=== PATIENT | female | born 1985 | race African-American/Black ===

== ENCOUNTER 2018-01-15 18:29 | Emergency (ER) | payer SELFPAY ==
[2018-01-15] MEDS ORDERED: Acetaminophen 325 MG TAB ONE (19:55)
[2018-01-15] MEDS ORDERED: Ibuprofen 200 MG TAB ONE (19:55)
== END 2018-01-15 20:01 | disposition home or self-care (01) ==
LOC: ERS 18:29
DX: M54.9 Dorsalgia, unspecified (principal); W20.8XXA Other cause of strike by thrown, projected or falling object, initial encounter
CPT/HCPCS: 99283

== ENCOUNTER 2018-11-19 07:47 | Emergency (ER) | payer MEDICAID, SELFPAY ==
[2018-11-19] MEDS ORDERED: Ketorolac Tromethamine 30 MG/ML VIAL ONE (09:58)
[2018-11-19] MEDS ORDERED: Ondansetron PF 4 MG/2 ML Vial ONE (09:58)
[2018-11-19] MEDS ORDERED: Acetaminophen 500 MG TAB ONE (09:58)
[2018-11-19] MEDS ORDERED: Metoclopramide HCl 10 MG/2 ML VIAL ONE (09:58)
--- NOTE | 2018-11-19 10:09 | CT ---
CT BRAIN NONCONTRAST: Date: 11/19/18 HISTORY: 32-year-old female with headache. FINDINGS: The ventricles are normal in size and configuration. There is no midline shift or any other mass eff ect. There is no evidence of acute intracranial hemorrhage, large cortical infarct, or extraaxial fl uid collection. The reynolds matter /white matter differentiation is maintained. The calvarium is intac t. The tympanomastoid cavities, and the upper portions of the paranasal sinuses included in these im ages, are grossly clear. IMPRESSION: Normal. jn [] POS: [facility]
[2018-11-19 10:15] LABS: #Lymphocytes 1.5 thou/uL (1.20-3.40); #Monocytes 0.3 thou/uL (0.11-0.59); #Neutrophils 7.2 thou/uL (1.40-6.50); %Basophils 0.1 % (0.0-1.0); %Eosinophils 0.3 % (0.0-10.0); %Lymphocytes 16.4 % (21.0-51.0); %Neutrophils 80.1 % (42.0-75.0); BHCG - Serum Negative (NEGATIVE); Hemoglobin 12.4 g/dL (12.0-16.0); Mean Corpuscular HGB CONC 33.3 g/dL (32.0-36.0); Mean Corpuscular Hemoglobin 27.8 pg (27.0-31.0); Mean Corpuscular Volume 83.6 fL (78.0-98.0); Mean Platelet Volume 9.1 fL (7.4-10.4); Platelet Count 278 thou/uL (130-400); Pregs Control Background? CLEAR/WHITE (CLR/WHITE); Pregs Control Bar Appear? YES (CONTROL BAR); RBC Distribution Width 14.3 % (11.5-14.5); Red Blood Cell (RBC) Count 4.47 mill/uL (4.20-5.40)
[2018-11-19 10:31] LABS: ALT (SGPT) 13 U/L (8-55); AST (SGOT) 14 U/L (5-34); Albumin 4.5 g/dL (3.5-5.0); Alkaline Phosphatase 84 U/L (40-150); Anion Gap 13 mmol/L (10-20); BUN (Urea Nitrogen) 7 mg/dL (7.0-18.7); Bilirubin, Total 0.5 mg/dL (0.2-1.2); Calc. Creatinine Clearance 0 mL/min (70-130); Calcium 9.8 mg/dL (7.8-10.44); Carbon Dioxide 25 mmol/L (22-29); Chloride 104 mmol/L (98-107); Estimated GFR-MDRD Greater than 90; Globulin 3.8 g/dL (2.4-3.5); Glucose 100 mg/dL (70-105); Potassium 3.3 mmol/L (3.5-5.1); Protein, Total 8.3 g/dL (6.0-8.3); Sodium 139 mmol/L (136-145)
== END 2018-11-19 11:18 | disposition home or self-care (01) ==
LOC: ERS 07:47
DX: R51 Headache (principal)
CPT/HCPCS: 70450; 80053; 84703; 85025; 96365; 96375; J1885; J2405; J2765

== ENCOUNTER 2019-01-01 07:08 | Emergency (ER) | payer MEDICAID ==
[2019-01-01] MEDS ORDERED: Acetaminophen 500 MG TAB ONE (07:53)
[2019-01-01] MEDS ORDERED: Ketorolac Tromethamine 30 MG/ML VIAL ONE (07:53)
[2019-01-01] MEDS ORDERED: Ondansetron ODT 4 MG TAB ONE (07:53)
[2019-01-01] MEDS ORDERED: Dexamethasone 10 MG/ML VIAL ONE (07:54)
--- NOTE | 2019-01-01 09:21 | RAD ---
CHEST TWO VIEWS: HISTORY: Pain and swelling above left breast. Chest pain. COMPARISON: 08/05/2005 FINDINGS: Lung broussard are clear. Heart and mediastinum appear normal. Vasculature is normal. Osseous structures are unremarkable. IMPRESSION: No acute abnormality. POS: OFF
== END 2019-01-01 08:34 | disposition home or self-care (01) ==
LOC: ERS 07:08
DX: M94.0 Chondrocostal junction syndrome [Tietze] (principal)
CPT/HCPCS: 71046; 96372; J1100; J1885; Q0162

== ENCOUNTER 2019-01-27 07:15 | Emergency (ER) | payer MEDICAID ==
--- NOTE | 2019-01-27 07:54 | RAD ---
2 view chest: [01/27/2019] Comparion:01/01/2019 HISTORY: Throat pain, back pain, pain with inspiration FINDINGS: Heart and mediastinal contours are grossly unremarkable. No pneumothorax or pleural fluid. No focal consolidation or alveolar edema. IMPRESSION: No acute findings.
== END 2019-01-27 08:12 | disposition home or self-care (01) ==
LOC: ERS 07:15
DX: M54.6 Pain in thoracic spine (principal)
CPT/HCPCS: 71046

== ENCOUNTER 2019-08-14 13:58 | Outpatient (CLI) | payer OTHER ==
--- NOTE | 2019-08-14 14:49 | ULT ---
Pelvic sonogram transabdominal and transvaginal imaging with duplex evaluation HISTORY: Pelvic pain and bleeding. FINDINGS: Urinary bladder is incompletely distended. Uterus has a very heterogeneous echotexture and measures up to 11.6 cm. Endometrium is 1.9 cm greatest thickness and is significantly distorted by fibroid disease. Heterogeneous hypoechoic mass at the fundus is 2.7 x 2.6 cm greatest diameters. More centrally is a 5 .5 cm x 5.4 cm heterogeneous fibroid. Nabothian cysts arise from the cervix. Physiologic amount of free fluid in the cul-de-sac. Each ovary has normal appearance with small follicles. Good color and spectral Doppler flow. IMPRESSION : Moderate fibroid involvement of the uterus.
== END 2019-08-14 13:59 | disposition home or self-care (01) ==
LOC: BICULT 13:58
PROVIDERS: ATTEND Nurse Practitioner Women's Health
DX: N93.9 Abnormal uterine and vaginal bleeding, unspecified (principal); D25.9 Leiomyoma of uterus, unspecified
CPT/HCPCS: 76856

== ENCOUNTER 2020-03-10 13:50 | Emergency (ER) | payer SELFPAY ==
[2020-03-11 06:34] LABS: SARS-CoV-2 MS2 Positive; SARS-CoV-2 N Gene Negative; SARS-CoV-2 S Gene Negative; SARS-CoV-2 by NAA Not Detected (NotDetected); SARS-CoV-2 orf1ab Negative
== END 2020-03-10 14:55 | disposition home or self-care (01) ==
LOC: ERS 13:50
DX: R05 Cough (principal); R50.9 Fever, unspecified; R52 Pain, unspecified; Z20.828 Contact with and (suspected) exposure to other viral communicable diseases
CPT/HCPCS: 87635; 99283; U0003

== ENCOUNTER 2020-06-21 10:58 | Outpatient (CLI) | payer OTHER | END 2020-06-21 10:59 | disposition home or self-care (01) | LOC: EKG 10:58 | DX: Z01.818 Encounter for other preprocedural examination (principal) | CPT/HCPCS: 93005; 93010 ==

== ENCOUNTER 2022-01-18 13:47 | Outpatient (CLI) | payer BC | END 2022-01-18 13:48 | disposition home or self-care (01) | LOC: BICRAD 13:47 | PROVIDERS: ATTEND Family Medicine | DX: R05.9 Cough, unspecified (principal) | CPT/HCPCS: 71046 ==